=== PATIENT | male | born 1975 | race Caucasian/White ===

== ENCOUNTER 2019-07-17 14:56 | Inpatient (IN) | payer MEDICAID, OTHER ==
[~2019-07-17] VITALS: Ht 160 cm; Wt 67.6 kg
[2019-07-17 16:05] LABS: HEMATOCRIT. 35.2 % (42.0-52.0); HEMOGLOBIN. 12.4 g/dL (14.0-18.0); MEAN CORPUSCULAR HEMOGLOBIN 33.4 pg (28.0-32.0); MEAN CORPUSCULAR VOLUME 94.7 fL (80.0-94.0); MEAN PLATELET VOLUME 10.8 fl (7.4-10.4); PLATELET 122 x1000/uL (130-400); RED BLOOD CELL COUNT 3.71 mill/uL (4.7-6.1); RED CELL DISTRIBUTION WIDTH 18.9 % (11.6-14.6)
[2019-07-17 16:08] LABS: CHLORIDE 97 mEq/L (98-107)
[2019-07-17 16:12] LABS: ETHANOL BLOOD < 10 mg/dL
[2019-07-17 16:19] LABS: CLARITY URINE CLEAR (CLEAR); COLOR URINE DARK YELLOW (YELLOW); KETONES URINE NEGATIVE (NEGATIVE); LEUKOCYTE ESTERASE URINE 1+ (NEGATIVE); NITRITE URINE POSITIVE (NEGATIVE); OCCULT BLOOD URINE NEGATIVE (NEGATIVE); PH URINE 7.5 (4.5-8.0); PROTEIN URINE 2+ (NEGATIVE); SPECIFIC GRAVITY URINE 1.025 (1.005-1.030)
[2019-07-17 16:29] LABS: PLATELET ESTIMATE DECREASED
[2019-07-17] MEDS ORDERED: POTASSIUM CHLORIDE 20MEQ TABLET SR PO ONE (16:45)
[2019-07-17] MEDS ORDERED: MAGNESIUM 2 G PREMIX 50 ML IV ONE (16:45)
[2019-07-17 16:51] LABS: *AMPHETAMINES SCREEN URINE NEGATIVE (NEGATIVE); *BARBITURATES SCREEN URINE NEGATIVE (NEGATIVE); *BENZODIAZEPINES SCREEN URINE NEGATIVE (NEGATIVE); *COCAINE SCREEN URINE NEGATIVE (NEGATIVE); METHADONE URINE SCREEN NEGATIVE (NEGATIVE)
[2019-07-17 16:52] LABS: CANNABINOID URINE SCREEN NEGATIVE (NEGATIVE); OPIATES URINE SCREEN NEGATIVE (NEGATIVE); PHENCYCLIDINE URINE SCREEN NEGATIVE (NEGATIVE)
[2019-07-17] MEDS ORDERED: CEFTRIAXONE 1 G PREMIX 50 ML IV ONE (18:00)
[2019-07-17 23:00] VITALS: BP 154/101
[2019-07-18] VITALS (9 sets, daily range): BP systolic 99–119; BP diastolic 52–91
[2019-07-18] MEDS ORDERED: MAGNESIUM/ALUMINUM HYDROXIDE/SIMETHICONE 30ML UDC PO PRN (00:15)
[2019-07-18] MEDS ORDERED: HYDRALAZINE 20MG/ML VIAL IV PRN (00:15)
[2019-07-18] MEDS ORDERED: HYDROCODONE/ACETAMINOPHEN 10/325MG TABLET PO PRN (00:15)
[2019-07-18] MEDS ORDERED: NA PHOS,M-B/NA PHOS,DI-BA ENEMA 118ML PR PRN (00:15)
[2019-07-18] MEDS ORDERED: ACETAMINOPHEN 325MG TABLET PO PRN (00:15)
[2019-07-18] MEDS ORDERED: DOCUSATE SODIUM 100MG CAPSULE PO PRN (00:15)
[2019-07-18] MEDS ORDERED: MORPHINE SULFATE 2 MG/ML CPJ (NOT FOR IM USE) IV PRN (00:15)
[2019-07-18] MEDS ORDERED: DIPHENHYDRAMINE 50MG/ML VIAL IV PRN (00:15)
[2019-07-18] MEDS ORDERED: IPRATROPIUM/ALBUTEROL 0.5-3(2.5)MG/3ML NEB NEB PRN (00:15)
[2019-07-18] MEDS ORDERED: ONDANSETRON HCL 4MG/2ML INJ IV PRN (00:15)
[2019-07-18] MEDS ORDERED: GUAIFENESIN 200MG/10ML SUGAR FREE UDC PO PRN (00:15)
[2019-07-18] MEDS ORDERED: CLONIDINE 0.1MG TABLET PO PRN (00:15)
[2019-07-18] MEDS ORDERED: POTASSIUM CHLORIDE 20MEQ TABLET SR PO NR (00:25)
[2019-07-18] MEDS: LORAZEPAM 2MG/ML CPJ IV PRN ×2 (01:08→23:25)
[2019-07-18] MEDS: SODIUM CHLORIDE 0.45% 1,000 ML IV SCH ×4 (01:09→23:25)
[2019-07-18 06:30] LABS: CREATINE KINASE 278 IU/L (39-308)
[2019-07-18] MEDS: SODIUM CHLORIDE 0.9% INJ 3ML FLUSH IVF SCH ×3 (06:31→20:18)
[2019-07-18 06:37] LABS: CREATINE KINASE MB FRACTION < 1.0 ng/mL (0.5-3.6)
[2019-07-18] MEDS: MULTIVITAMINS,THER W-MINERALS TABLET PO SCH ×2 (08:48→09:00)
[2019-07-18] MEDS: THIAMINE HCL 100MG TABLET PO SCH ×2 (08:48→09:00)
[2019-07-18] MEDS: ASPIRIN 81MG EC TABLET PO SCH ×2 (08:48→08:59)
[2019-07-18] MEDS: ENOXAPARIN 40MG/0.4ML SYR SUBCUT SCH (08:49)
[2019-07-18] MEDS: FOLIC ACID 1MG TABLET PO SCH ×2 (08:51→09:00)
[2019-07-18 17:44] LABS: CREATINE KINASE 209 IU/L (39-308)
[2019-07-18 17:46] LABS: CREATINE KINASE MB FRACTION < 1.0 ng/mL (0.5-3.6); T4 FREE 1.78 ng/dL (0.76-1.46)
[2019-07-18] MEDS: ASPIRIN 81MG TABLET PO SCH (19:08)
[2019-07-19 03:35] VITALS: BP 111/69
[2019-07-19] MEDS: SODIUM CHLORIDE 0.9% INJ 3ML FLUSH IVF SCH ×3 (04:19→22:00)
[2019-07-19 06:35] LABS: HEMATOCRIT. 33.7 % (42.0-52.0); HEMOGLOBIN. 11.9 g/dL (14.0-18.0); MEAN CORPUSCULAR HEMOGLOBIN 33.6 pg (28.0-32.0); MEAN CORPUSCULAR VOLUME 95.4 fL (80.0-94.0); MEAN PLATELET VOLUME 10.9 fl (7.4-10.4); PLATELET 168 x1000/uL (130-400); RED BLOOD CELL COUNT 3.53 mill/uL (4.7-6.1); RED CELL DISTRIBUTION WIDTH 18.8 % (11.6-14.6)
[2019-07-19 07:20] LABS: CHLORIDE 103 mEq/L (98-107)
[2019-07-19 08:00] VITALS: BP 112/75
[2019-07-19] MEDS ORDERED: POTASSIUM CHLORIDE 20MEQ TABLET SR PO NR (08:00)
[2019-07-19] MEDS: ASPIRIN 81MG TABLET PO SCH (09:11)
[2019-07-19] MEDS: THIAMINE HCL 100MG TABLET PO SCH (09:11)
[2019-07-19] MEDS: MULTIVITAMINS,THER W-MINERALS TABLET PO SCH (09:11)
[2019-07-19] MEDS: FOLIC ACID 1MG TABLET PO SCH (09:11)
[2019-07-19] MEDS: ENOXAPARIN 40MG/0.4ML SYR SUBCUT SCH (09:12)
[2019-07-19] MEDS: SODIUM CHLORIDE 0.45% 1,000 ML IV SCH ×2 (09:13→17:00)
[2019-07-19 11:12] LABS: PLATELET ESTIMATE NORMAL
[2019-07-19 12:00] VITALS: BP 117/82
[2019-07-19 16:00] VITALS: BP 106/69
[2019-07-19 20:00] VITALS: BP 109/70
[2019-07-20] VITALS: BP 130/88
[2019-07-20] MEDS: SODIUM CHLORIDE 0.45% 1,000 ML IV SCH ×3 (01:17→16:43)
[2019-07-20 04:00] VITALS: BP 109/70
[2019-07-20] MEDS: SODIUM CHLORIDE 0.9% INJ 3ML FLUSH IVF SCH ×3 (06:00→22:00)
[2019-07-20 08:00] VITALS: BP 105/55
[2019-07-20] MEDS: FOLIC ACID 1MG TABLET PO SCH (08:37)
[2019-07-20] MEDS: ASPIRIN 81MG TABLET PO SCH (08:37)
[2019-07-20] MEDS: MULTIVITAMINS,THER W-MINERALS TABLET PO SCH (08:37)
[2019-07-20] MEDS: THIAMINE HCL 100MG TABLET PO SCH (08:37)
[2019-07-20] MEDS: ENOXAPARIN 40MG/0.4ML SYR SUBCUT SCH (08:38)
[2019-07-20 11:18] LABS: CHLORIDE 100 mEq/L (98-107)
[2019-07-20 12:00] VITALS: BP 118/72
[2019-07-20] MEDS ORDERED: POTASSIUM CHLORIDE 20MEQ TABLET SR PO NR ×2 (12:34→22:41)
[2019-07-20] MEDS ORDERED: KCL 20MEQ/100ML PREMIX 100 ML IV NR (13:39)
[2019-07-20 16:00] VITALS: BP 111/75
[2019-07-21 06:33] LABS: HEMATOCRIT. 33.3 % (42.0-52.0); HEMOGLOBIN. 11.5 g/dL (14.0-18.0); MEAN CORPUSCULAR HEMOGLOBIN 33.5 pg (28.0-32.0); MEAN CORPUSCULAR VOLUME 96.9 fL (80.0-94.0); MEAN PLATELET VOLUME 10.8 fl (7.4-10.4); PLATELET 270 x1000/uL (130-400); RED BLOOD CELL COUNT 3.43 mill/uL (4.7-6.1); RED CELL DISTRIBUTION WIDTH 19.9 % (11.6-14.6)
[2019-07-21] MEDS: SODIUM CHLORIDE 0.9% INJ 3ML FLUSH IVF SCH ×3 (06:33→22:27)
[2019-07-21] MEDS: SODIUM CHLORIDE 0.45% 1,000 ML IV SCH ×3 (06:33→22:26)
[2019-07-21 06:40] LABS: CHLORIDE 102 mEq/L (98-107)
[2019-07-21 08:00] VITALS: BP 121/82
[2019-07-21] MEDS: FOLIC ACID 1MG TABLET PO SCH (09:18)
[2019-07-21] MEDS: THIAMINE HCL 100MG TABLET PO SCH (09:18)
[2019-07-21] MEDS: ASPIRIN 81MG TABLET PO SCH (09:18)
[2019-07-21] MEDS: MULTIVITAMINS,THER W-MINERALS TABLET PO SCH (09:19)
[2019-07-21] MEDS: ENOXAPARIN 40MG/0.4ML SYR SUBCUT SCH (09:19)
[2019-07-21 10:54] LABS: PLATELET ESTIMATE NORMAL
[2019-07-21] MEDS ORDERED: POTASSIUM CHLORIDE 20MEQ TABLET SR PO NR (11:53)
[2019-07-21 12:00] VITALS: BP 121/82
[2019-07-21] MEDS ORDERED: PHENOL/SODIUM PHENOLATE 1.4% SRPAY 177ML MM PRN (12:00)
[2019-07-21] MEDS: CHLORHEXIDINE GLUCONATE 0.12% MOUTHWASH UDC SSP SCH ×2 (12:04→17:21)
[2019-07-21 16:00] VITALS: BP 123/85
[2019-07-21 20:00] VITALS: BP 117/95
[2019-07-22] VITALS: BP 122/87
[2019-07-22] MEDS: SODIUM CHLORIDE 0.9% INJ 3ML FLUSH IVF SCH (02:54)
[2019-07-22 04:00] VITALS: BP 124/77
[2019-07-22 07:03] LABS: HEMATOCRIT. 34.6 % (42.0-52.0); MEAN CORPUSCULAR HEMOGLOBIN 34.4 pg (28.0-32.0); MEAN CORPUSCULAR VOLUME 98.9 fL (80.0-94.0); MEAN PLATELET VOLUME 10.9 fl (7.4-10.4); PLATELET 333 x1000/uL (130-400); RED CELL DISTRIBUTION WIDTH 19.4 % (11.6-14.6)
[2019-07-22 07:47] LABS: CHLORIDE 105 mEq/L (98-107)
[2019-07-22 08:00] VITALS: BP 124/81
[2019-07-22] MEDS: CHLORHEXIDINE GLUCONATE 0.12% MOUTHWASH UDC SSP SCH (09:00)
[2019-07-22 10:00] VITALS: BP 115/77
[2019-07-22] MEDS: ASPIRIN 81MG TABLET PO SCH (10:17)
[2019-07-22] MEDS: ENOXAPARIN 40MG/0.4ML SYR SUBCUT SCH (10:17)
[2019-07-22] MEDS: SODIUM CHLORIDE 0.45% 1,000 ML IV SCH (10:17)
[2019-07-22] MEDS: FOLIC ACID 1MG TABLET PO SCH (10:17)
[2019-07-22] MEDS: MULTIVITAMINS,THER W-MINERALS TABLET PO SCH (10:17)
[2019-07-22] MEDS: THIAMINE HCL 100MG TABLET PO SCH (10:17)
[2019-07-22 11:36] VITALS: BP 120/87
[2019-07-22 13:08] VITALS: BP 115/68
[2019-07-22 17:25] LABS: PLATELET ESTIMATE NORMAL
== END 2019-07-22 14:00 | disposition home or self-care (01) | DRG 52 ==
LOC: ER 15:06 → 5EST 18:07 → EDBEDREQTM 18:19 → EDBEDREQ 18:19 → ENRESERV 22:08
PROVIDERS: ADMIT Internal Medicine; ATTEND Internal Medicine
DX: G92 Toxic encephalopathy (principal); E44.1 Mild protein-calorie malnutrition; N39.0 Urinary tract infection, site not specified; E86.0 Dehydration; E87.6 Hypokalemia; F10.10 Alcohol abuse, uncomplicated; R74.0 Nonspecific elevation of levels of transaminase and lactic acid dehydrogenase [LDH]; R42 Dizziness and giddiness; R79.89 Other specified abnormal findings of blood chemistry; Z71.41 Alcohol abuse counseling and surveillance of alcoholic
CPT/HCPCS: 36415; 80048; 80053; 80061; 80305; 80320; 81003; 82140; 82248; 82550; 82553; 82962; 83036; 83735; 83880; 84132; 84439; 84443; 84484; 85025; 85379; 93005; 93306; 97161; 99285; J0696; J1200; J1650; J2060; J3475; J3480; G0480